=== PATIENT | male | born 1965 | race Two or more races ===

== ENCOUNTER 2019-08-06 19:25 | Inpatient (IN) | payer MEDICAID ==
[~2019-08-06] VITALS: Ht 182.9 cm; Wt 96.2 kg
[2019-08-06 20:40] LABS: Urine Bacteria NONE SEEN /hpf (None Seen); Urine Blood TRACE /uL (Negative); Urine Specific Gravity 1.028 (1.001-1.035); Urine WBC <1 /hpf (0 - 3)
[2019-08-06 22:19] LABS: Basophils # (auto) 0 uL; Basophils % (auto) 0.4 % (0.0-2.0); Eosinophils # (auto) 0 uL; Eosinophils % (auto) 0.2 % (0.0-7.0); Hematocrit 42.6 % (41.0-53.0); Hemoglobin 14.1 g/dL (13.5-17.5); Lymphocytes # (auto) 1.1 uL; Lymphocytes % (auto) 10.2 % (10.0-50.0); Mean Corpuscular Hemoglobin 29.3 pg (28.0-32.0); Mean Corpuscular Hgb Conc. 33.1 g/dL (32.0-36.0); Mean Corpuscular Volume 88.7 fL (80.0-100.0); Monocytes # (auto) 1.3 uL; Monocytes % (auto) 12.3 % (0.0-12.0); Neutrophils # (auto) 8.3 uL; Neutrophils % (auto) 76.9 % (37.0-80.0); Nucleated Red Blood Cells % 0.1 %; Platelet Count (auto) 432 10^3/uL (140-450); Red Cell Distribution Width 13.4 % (11.8-14.3); White Blood Cell 10.7 10^3/uL (4.4-10.8)
[2019-08-06 22:39] LABS: Calcium 8.6 mg/dL (8.5-10.1); Potassium 4.7 mmol/L (3.5-5.1)
[2019-08-06 22:41] LABS: Bilirubin, Total 0.8 mg/dL (0.2-1.0); Total Protein 7.7 g/dL (6.4-8.2)
[2019-08-07] MEDS ORDERED: InsuLIN REG 1unit/0.01ml Soln (100units/ml) IV ONE (05:00)
[2019-08-07] MEDS ORDERED: SODIUM CHLORIDE 0.9% 1,000 ML IV ONE (05:00)
[2019-08-07] MEDS ORDERED: VANCOMYCIN PER PHARMACY 0 MG IV SCH (07:00)
[2019-08-07] MEDS ORDERED: CLINDAMYCIN 600MG IV 50 ML IV ONE (07:00)
[2019-08-07] MEDS ORDERED: ACETAMINOPHEN 325 MG TAB PO PRN (07:00)
[2019-08-07] MEDS ORDERED: TEMAZEPAM 15 MG CAP PO PRN (07:00)
[2019-08-07] MEDS ORDERED: ONDANSETRON HCL 4 MG/2 ML VIAL IV PRN (07:00)
[2019-08-07] MEDS ORDERED: DEXTROSE (50%) 50ML SYRG IV PRN (07:00)
[2019-08-07] MEDS ORDERED: PIPERACILLIN-TAZOB 3.375GM 100 ML IV ONE (07:15)
[2019-08-07] MEDS: HYDROcodone-ACET 5/325MG TAB PO PRN ×3 (07:50→17:15)
[2019-08-07 08:09] LABS: Albumin 2.6 g/dL (3.4-5.0); Calcium 8.3 mg/dL (8.5-10.1); Potassium 4.4 mmol/L (3.5-5.1)
[2019-08-07] MEDS: InsuLIN REG 1unit/0.01ml Soln (100units/ml) SC SCH ×4 (08:09→20:00)
[2019-08-07] MEDS: ACCU-CHEK COMFORT CURVE STRIP VI SCH ×4 (08:10→20:00)
[2019-08-07 08:12] LABS: BUN/Creatinine Ratio 21.2
[2019-08-07 08:14] LABS: Bilirubin, Total 0.5 mg/dL (0.2-1.0); Total Protein 6.9 g/dL (6.4-8.2)
[2019-08-07] MEDS: VANCOMYCIN 1,250 MG in D5W 5% 250 ML IV SCH ×2 (08:50→21:26)
[2019-08-07 09:20] VITALS: BP 148/65
[2019-08-07] MEDS ORDERED: CLOPIDOGREL BISULFATE 75 MG TAB PO SCH (10:00)
[2019-08-07] MEDS ORDERED: LEVETIRACETAM 500 MG TAB PO SCH (10:00)
[2019-08-07] MEDS: FAMOTIDINE 20 MG TAB PO SCH ×2 (10:09→21:39)
[2019-08-07] MEDS: LISINOPRIL 20 MG TAB PO SCH (10:10)
[2019-08-07] MEDS: METOPROLOL SUCCINATE XL 50 MG TAB PO SCH (10:10)
[2019-08-07] MEDS: ENOXAPARIN SOD 40 MG/0.4 ML SYRINGE SC SCH (10:11)
[2019-08-07 12:30] VITALS: BP 120/73
[2019-08-07] MEDS: PIPERACILLIN-TAZOB 3.375GM 100 ML IV SCH ×2 (12:38→17:14)
[2019-08-07] MEDS ORDERED: LORazepam 2MG/ML-1ML VIAL IV ONE (12:45)
[2019-08-07] MEDS ORDERED: INSULIN LANTUS (GLARGINE) 1 /0.01ml (100units/ml) SC ONE (12:45)
[2019-08-07 14:07] LABS: INR 0.96 (0.9-1.15); Partial Thromboplastin Time 31.2 sec (23.64-32.05)
[2019-08-07] MEDS ORDERED: LORazepam 2MG/ML-1ML VIAL IV PRN (14:30)
[2019-08-07 16:32] VITALS: BP 157/72
[2019-08-07] MEDS: Glucerna Carbsteady SHAKE Vanilla 8oz PO SCH (17:55)
[2019-08-07] MEDS ORDERED: BENZ1CAP24 PO (19:14)
[2019-08-07] MEDS ORDERED: CLOP75TA41 PO (19:14)
[2019-08-07] MEDS ORDERED: ASPI325T4 PO (19:14)
[2019-08-07] MEDS ORDERED: ATOR20TA PO (19:14)
[2019-08-07] MEDS ORDERED: LISI-646 PO (19:14)
[2019-08-07] MEDS ORDERED: KEP500T PO (19:14)
[2019-08-07] MEDS ORDERED: ALPR0.254 PO (19:14)
[2019-08-07] MEDS ORDERED: METO25TA62 PO (19:14)
[2019-08-07 20:00] VITALS: BP 156/72
[2019-08-07] MEDS: LEVETIRACETAM 500 MG TAB PO SCH (21:38)
[2019-08-07] MEDS: ATORVASTATIN 20 MG TAB PO SCH (21:39)
[2019-08-07 22:00] VITALS: BP 156/72
[2019-08-08] MEDS: PIPERACILLIN-TAZOB 3.375GM 100 ML IV SCH ×4 (00:20→17:29)
[2019-08-08] MEDS: HYDROcodone-ACET 5/325MG TAB PO PRN ×4 (00:45→18:31)
[2019-08-08] MEDS: ACCU-CHEK COMFORT CURVE STRIP VI SCH ×6 (04:00→20:00)
[2019-08-08] MEDS: InsuLIN REG 1unit/0.01ml Soln (100units/ml) SC SCH ×5 (04:00→16:47)
[2019-08-08 04:32] VITALS: BP 164/79
[2019-08-08 06:32] LABS: Basophils # (auto) 0 uL; Basophils % (auto) 0.4 % (0.0-2.0); Eosinophils # (auto) 0.1 uL; Eosinophils % (auto) 0.9 % (0.0-7.0); Hematocrit 35.2 % (41.0-53.0); Hemoglobin 11.9 g/dL (13.5-17.5); Lymphocytes # (auto) 1.1 uL; Lymphocytes % (auto) 13.3 % (10.0-50.0); Mean Corpuscular Hemoglobin 29.2 pg (28.0-32.0); Mean Corpuscular Hgb Conc. 33.8 g/dL (32.0-36.0); Mean Corpuscular Volume 86.5 fL (80.0-100.0); Monocytes # (auto) 1.1 uL; Monocytes % (auto) 12.9 % (0.0-12.0); Neutrophils # (auto) 6.1 uL; Neutrophils % (auto) 72.5 % (37.0-80.0); Platelet Count (auto) 348 10^3/uL (140-450); Red Blood Cells 4.07 10^6/uL (4.5-5.90); Red Cell Distribution Width 13.3 % (11.8-14.3); White Blood Cell 8.4 10^3/uL (4.4-10.8)
[2019-08-08 06:52] LABS: Albumin 2.4 g/dL (3.4-5.0); Calcium 8.1 mg/dL (8.5-10.1); Potassium 3.7 mmol/L (3.5-5.1)
[2019-08-08 06:56] LABS: BUN/Creatinine Ratio 20.6; Bilirubin, Total 0.3 mg/dL (0.2-1.0); Total Protein 6.3 g/dL (6.4-8.2)
[2019-08-08 08:00] VITALS: BP 149/67
[2019-08-08] MEDS ORDERED: INFLUENZA QUAD 2019-2020 0.5ml SYRG IM ONE (08:00)
[2019-08-08] MEDS ORDERED: PNEUMOCOCCAL VACC POLYS 25 MCG/0.5 ML VIAL IM ONE (08:00)
[2019-08-08] MEDS: Glucerna Carbsteady SHAKE Vanilla 8oz PO SCH ×3 (08:23→17:29)
[2019-08-08] MEDS: VANCOMYCIN 1,250 MG in D5W 5% 250 ML IV SCH ×2 (09:29→21:45)
[2019-08-08] MEDS: ENOXAPARIN SOD 40 MG/0.4 ML SYRINGE SC SCH (09:30)
[2019-08-08] MEDS: LEVETIRACETAM 500 MG TAB PO SCH ×2 (09:30→21:44)
[2019-08-08] MEDS: FAMOTIDINE 20 MG TAB PO SCH ×2 (09:30→21:42)
[2019-08-08] MEDS: ASPirin-EC 81 mg tab PO SCH (09:30)
[2019-08-08] MEDS: LISINOPRIL 20 MG TAB PO SCH (09:38)
[2019-08-08] MEDS: METOPROLOL SUCCINATE XL 50 MG TAB PO SCH (09:38)
[2019-08-08] MEDS: INSULIN LANTUS (GLARGINE) 1 /0.01ml (100units/ml) SC SCH ×2 (09:38→21:55)
[2019-08-08] MEDS ORDERED: INSULIN LANTUS (GLARGINE) 1 /0.01ml (100units/ml) SC SCH (10:00)
[2019-08-08 12:00] VITALS: BP 149/93
[2019-08-08] MEDS ORDERED: diphenhdrAMINE HCL 50 MG/1 ML VL IV ONE ×2 (12:15→19:00)
[2019-08-08 17:00] VITALS: BP 153/69
[2019-08-08 20:00] VITALS: BP 142/65
[2019-08-08] MEDS: ATORVASTATIN 20 MG TAB PO SCH (21:42)
[2019-08-08 22:22] VITALS: BP 142/65
[2019-08-09] MEDS: PIPERACILLIN-TAZOB 3.375GM 100 ML IV SCH ×5 (00:47→23:43)
[2019-08-09] MEDS: InsuLIN REG 1unit/0.01ml Soln (100units/ml) SC SCH ×7 (04:00→23:47)
[2019-08-09] MEDS: ACCU-CHEK COMFORT CURVE STRIP VI SCH ×7 (04:00→23:45)
[2019-08-09] MEDS: HYDROcodone-ACET 5/325MG TAB PO PRN ×4 (04:59→20:28)
[2019-08-09 05:56] VITALS: BP 116/79
[2019-08-09] MEDS: Glucerna Carbsteady SHAKE Vanilla 8oz PO SCH ×3 (08:00→18:00)
[2019-08-09] MEDS: VANCOMYCIN 1,250 MG in D5W 5% 250 ML IV SCH ×2 (08:26→20:53)
[2019-08-09 09:00] VITALS: BP 142/64
[2019-08-09] MEDS: LISINOPRIL 20 MG TAB PO SCH (10:00)
[2019-08-09] MEDS: LEVETIRACETAM 500 MG TAB PO SCH ×2 (10:00→21:29)
[2019-08-09] MEDS: ENOXAPARIN SOD 40 MG/0.4 ML SYRINGE SC SCH (10:00)
[2019-08-09] MEDS: ASPirin-EC 81 mg tab PO SCH (10:00)
[2019-08-09] MEDS: FAMOTIDINE 20 MG TAB PO SCH ×2 (10:01→21:30)
[2019-08-09] MEDS: INSULIN LANTUS (GLARGINE) 1 /0.01ml (100units/ml) SC SCH ×2 (10:01→21:39)
[2019-08-09] MEDS: METOPROLOL SUCCINATE XL 50 MG TAB PO SCH (10:01)
[2019-08-09 13:00] VITALS: BP 120/66
[2019-08-09 17:00] VITALS: BP 156/68
[2019-08-09] MEDS ORDERED: diphenhdrAMINE HCL 50 MG/1 ML VL IV PRN (20:45)
[2019-08-09] MEDS: MORPHINE SULF INJ 2 MG/ML SYRINGE 1ML IV PRN (21:28)
[2019-08-09] MEDS: ATORVASTATIN 20 MG TAB PO SCH (21:30)
[2019-08-09 22:02] VITALS: BP 166/85
[2019-08-10 05:42] VITALS: BP 166/70
[2019-08-10] MEDS: ACCU-CHEK COMFORT CURVE STRIP VI SCH ×5 (06:05→19:58)
[2019-08-10] MEDS: PIPERACILLIN-TAZOB 3.375GM 100 ML IV SCH ×3 (06:05→18:47)
[2019-08-10] MEDS: InsuLIN REG 1unit/0.01ml Soln (100units/ml) SC SCH ×5 (06:13→19:48)
[2019-08-10] MEDS: Glucerna Carbsteady SHAKE Vanilla 8oz PO SCH ×3 (08:00→18:00)
[2019-08-10] MEDS ORDERED: LIDOCAINE 1% HCL (LOCAL ANESTH.) INJ 20ML MDV ONE (08:28)
[2019-08-10] MEDS ORDERED: BUPIVACAINE HCL 50 ML ONE (08:29)
[2019-08-10] MEDS ORDERED: LIDOCAINE 1% (LOCAL ANESTH.) PF 5ml SDV ONE (08:51)
[2019-08-10] MEDS ORDERED: MIDAZOLAM HCL 1MG/1ML-2 ML VIAL ONE ×2 (09:01→09:14)
[2019-08-10] MEDS ORDERED: METOCLOPRAMIDE HCL 5MG/ml INJ 2ml VIAL ONE (09:06)
[2019-08-10] MEDS ORDERED: PROPOFOL 10 MG/ML 20 ML IV ONE (09:10)
[2019-08-10] MEDS ORDERED: GLYCOPYRROLATE 0.2 MG/ML 1ML VIAL ONE (09:12)
[2019-08-10] MEDS ORDERED: diphenhdrAMINE HCL 50 MG/1 ML VL ONE (09:12)
[2019-08-10] MEDS: ENOXAPARIN SOD 40 MG/0.4 ML SYRINGE SC SCH (10:00)
[2019-08-10] MEDS ORDERED: HYDROmorphone HCL 2 MG/ML VL IV PRN (10:15)
[2019-08-10] MEDS ORDERED: HYDROmorphone HCL 2 MG/ML VL ONE (10:15)
[2019-08-10] MEDS ORDERED: NALOXONE HCL 0.4 MG/ML VIAL IV PRN (10:15)
[2019-08-10] MEDS ORDERED: ACCU-CHEK COMFORT CURVE STRIP VI ONE (10:15)
[2019-08-10] MEDS ORDERED: ONDANSETRON HCL 4 MG/2 ML VIAL IV PRN (10:15)
[2019-08-10] MEDS: ASPirin-EC 81 mg tab PO SCH (10:56)
[2019-08-10] MEDS: LEVETIRACETAM 500 MG TAB PO SCH ×2 (10:57→22:19)
[2019-08-10] MEDS: LISINOPRIL 20 MG TAB PO SCH (10:57)
[2019-08-10] MEDS: FAMOTIDINE 20 MG TAB PO SCH ×2 (10:57→22:20)
[2019-08-10] MEDS: HYDROcodone-ACET 5/325MG TAB PO PRN ×2 (10:58→17:39)
[2019-08-10] MEDS: METOPROLOL SUCCINATE XL 50 MG TAB PO SCH (10:58)
[2019-08-10] MEDS: INSULIN LANTUS (GLARGINE) 1 /0.01ml (100units/ml) SC SCH ×2 (12:27→22:41)
[2019-08-10] MEDS: VANCOMYCIN 1,250 MG in D5W 5% 250 ML IV SCH ×2 (12:38→22:21)
[2019-08-10 13:00] VITALS: BP 149/69
[2019-08-10] MEDS: MORPHINE SULF INJ 2 MG/ML SYRINGE 1ML IV PRN ×2 (14:34→19:47)
[2019-08-10] MEDS ORDERED: LIDOCAINE 1% (LOCAL ANESTH.) PF 5ml SDV ID ONE (14:45)
[2019-08-10 17:00] VITALS: BP 164/66
[2019-08-10 22:08] VITALS: BP 138/65
[2019-08-10] MEDS: ATORVASTATIN 20 MG TAB PO SCH (22:20)
[2019-08-10] MEDS: SODIUM CHLOR 0.9% PF (SALINE LOCK) 10ML VIAL/SYR IV SCH (22:21)
[2019-08-11] MEDS: PIPERACILLIN-TAZOB 3.375GM 100 ML IV SCH ×3 (00:31→12:29)
[2019-08-11] MEDS: InsuLIN REG 1unit/0.01ml Soln (100units/ml) SC SCH ×7 (00:33→23:40)
[2019-08-11] MEDS: ACCU-CHEK COMFORT CURVE STRIP VI SCH ×7 (00:33→23:40)
[2019-08-11] MEDS: MORPHINE SULF INJ 2 MG/ML SYRINGE 1ML IV PRN ×4 (04:23→20:07)
[2019-08-11 04:45] VITALS: BP 135/74
[2019-08-11] MEDS: HYDROcodone-ACET 5/325MG TAB PO PRN (05:59)
[2019-08-11 06:36] LABS: Basophils # (auto) 0.1 uL; Basophils % (auto) 1.4 % (0.0-2.0); Eosinophils # (auto) 0.2 uL; Eosinophils % (auto) 1.7 % (0.0-7.0); Hemoglobin 11.5 g/dL (13.5-17.5); Lymphocytes # (auto) 0.9 uL; Lymphocytes % (auto) 10.2 % (10.0-50.0); Mean Corpuscular Hemoglobin 29.2 pg (28.0-32.0); Mean Corpuscular Hgb Conc. 33.8 g/dL (32.0-36.0); Mean Corpuscular Volume 86.3 fL (80.0-100.0); Monocytes # (auto) 1.1 uL; Monocytes % (auto) 11.6 % (0.0-12.0); Neutrophils % (auto) 75.1 % (37.0-80.0); Platelet Count (auto) 361 10^3/uL (140-450); Red Blood Cells 3.94 10^6/uL (4.5-5.90); Red Cell Distribution Width 13.3 % (11.8-14.3); White Blood Cell 9.3 10^3/uL (4.4-10.8)
[2019-08-11] MEDS: VANCOMYCIN 1,250 MG in D5W 5% 250 ML IV SCH (08:05)
[2019-08-11] MEDS: Glucerna Carbsteady SHAKE Vanilla 8oz PO SCH ×3 (08:05→18:00)
[2019-08-11] MEDS: INSULIN LANTUS (GLARGINE) 1 /0.01ml (100units/ml) SC SCH ×2 (08:36→22:29)
[2019-08-11] MEDS: LEVETIRACETAM 500 MG TAB PO SCH ×2 (08:37→22:24)
[2019-08-11] MEDS: ASPirin-EC 81 mg tab PO SCH (08:37)
[2019-08-11] MEDS: METOPROLOL SUCCINATE XL 50 MG TAB PO SCH (08:38)
[2019-08-11] MEDS: LISINOPRIL 20 MG TAB PO SCH (08:38)
[2019-08-11] MEDS: FAMOTIDINE 20 MG TAB PO SCH ×2 (08:39→22:24)
[2019-08-11] MEDS: ENOXAPARIN SOD 40 MG/0.4 ML SYRINGE SC SCH (08:39)
[2019-08-11] MEDS: SODIUM CHLOR 0.9% PF (SALINE LOCK) 10ML VIAL/SYR IV SCH ×2 (08:40→22:29)
[2019-08-11 09:00] VITALS: BP 167/69
[2019-08-11 13:15] VITALS: BP 141/94
[2019-08-11] MEDS ORDERED: LEVOFLOXACIN 750MG 150 ML IV ONE (13:45)
[2019-08-11 16:56] VITALS: BP 135/61
[2019-08-11 21:47] VITALS: BP 136/75
[2019-08-11] MEDS: ATORVASTATIN 20 MG TAB PO SCH (22:24)
[2019-08-12] MEDS: InsuLIN REG 1unit/0.01ml Soln (100units/ml) SC SCH ×3 (04:00→12:00)
[2019-08-12] MEDS: ACCU-CHEK COMFORT CURVE STRIP VI SCH ×3 (04:12→12:00)
[2019-08-12] MEDS: MORPHINE SULF INJ 2 MG/ML SYRINGE 1ML IV PRN (04:20)
[2019-08-12 05:20] VITALS: BP 160/79
[2019-08-12] MEDS: HYDROcodone-ACET 5/325MG TAB PO PRN ×2 (06:27→11:00)
[2019-08-12] MEDS: Glucerna Carbsteady SHAKE Vanilla 8oz PO SCH ×2 (08:12→12:00)
[2019-08-12] MEDS: INSULIN LANTUS (GLARGINE) 1 /0.01ml (100units/ml) SC SCH (08:14)
[2019-08-12 08:30] VITALS: BP 138/63
[2019-08-12] MEDS: FAMOTIDINE 20 MG TAB PO SCH (09:48)
[2019-08-12] MEDS: LEVETIRACETAM 500 MG TAB PO SCH (09:48)
[2019-08-12] MEDS: ASPirin-EC 81 mg tab PO SCH (09:48)
[2019-08-12] MEDS: ENOXAPARIN SOD 40 MG/0.4 ML SYRINGE SC SCH (09:48)
[2019-08-12] MEDS: SODIUM CHLOR 0.9% PF (SALINE LOCK) 10ML VIAL/SYR IV SCH (09:49)
[2019-08-12] MEDS: LISINOPRIL 20 MG TAB PO SCH (09:49)
[2019-08-12] MEDS: METOPROLOL SUCCINATE XL 50 MG TAB PO SCH (09:49)
[2019-08-12] MEDS ORDERED: LEVOFLOXACIN 750MG 150 ML IV SCH (10:00)
[2019-08-12 10:58] VITALS: BP 138/63
[2019-08-12 12:00] VITALS: BP 163/73
[2019-08-12] MEDS ORDERED: DAKINS QUARTER STR 0.125% (NaHypochlorite) 473 ML TOPICAL SOL TOP SCH (22:00)
== END 2019-08-12 15:00 | disposition home health service (06) | DRG 314 ==
LOC: ER 19:33 → OVERFLOW 19:34 → WEST WING 08-07 12:12
PROVIDERS: ADMIT Nurse Practitioner; ATTEND Internal Medicine
PROC: 0QBL0ZZ Excision of Right Tarsal, Open Approach (ICD-10-PCS; 2019-08-10)
PROC: 0QBN0ZZ Excision of Right Metatarsal, Open Approach (ICD-10-PCS; 2019-08-10)
PROC: 0Y9M0ZZ Drainage of Right Foot, Open Approach (ICD-10-PCS; principal; 2019-08-10 09:02)
DX: T87.43 Infection of amputation stump, right lower extremity (principal); E43 Unspecified severe protein-calorie malnutrition; E11.40 Type 2 diabetes mellitus with diabetic neuropathy, unspecified; E11.69 Type 2 diabetes mellitus with other specified complication; M86.171 Other acute osteomyelitis, right ankle and foot; E11.65 Type 2 diabetes mellitus with hyperglycemia; E11.49 Type 2 diabetes mellitus with other diabetic neurological complication; I10 Essential (primary) hypertension; E87.1 Hypo-osmolality and hyponatremia; Y83.5 Amputation of limb(s) as the cause of abnormal reaction of the patient, or of later complication, without mention of misadventure at the time of the procedure; B96.20 Unspecified Escherichia coli [E. coli] as the cause of diseases classified elsewhere; E11.51 Type 2 diabetes mellitus with diabetic peripheral angiopathy without gangrene; E78.5 Hyperlipidemia, unspecified; I45.10 Unspecified right bundle-branch block; I45.2 Bifascicular block; Z79.4 Long term (current) use of insulin; Z86.73 Personal history of transient ischemic attack (TIA), and cerebral infarction without residual deficits; Z95.820 Peripheral vascular angioplasty status with implants and grafts; Z68.28 Body mass index [BMI] 28.0-28.9, adult; Z79.82 Long term (current) use of aspirin; Z79.899 Other long term (current) drug therapy; Z83.3 Family history of diabetes mellitus; Y92.098 Other place in other non-institutional residence as the place of occurrence of the external cause
CPT/HCPCS: 36415; 36569; 71045; 73700; 73718; 80053; 80202; 81001; 82565; 82962; 83036; 83605; 85025; 85610; 85652; 85730; 87040; 87075; 87077; 87186; 87205; 93306; 96361; 96365; 96366; 96368; 96375; G0378; J1815; J1956; J2001; J2250; J2543; J2704; J3490; J7060

== ENCOUNTER 2020-01-03 12:22 | Inpatient (IN) | payer MEDICAID ==
[~2020-01-03] VITALS: Ht 182.9 cm; Wt 98.4 kg
[~2020-01-03 12:22] MED LIST: ALPR0.254 PO; ASPI325T4 PO; ATOR20TA PO; BENZ1CAP24 PO; CLOP75TA41 PO; KEP500T PO; LISI-646 PO; METO25TA93 PO
[2020-01-03] MEDS ORDERED: VANCOMYCIN PER PHARMACY 0 MG IV SCH ×2 (13:15→15:45)
[2020-01-03] MEDS ORDERED: VANCOMYCIN 1GM/250ML 250 ML IV ONE (13:30)
[2020-01-03 13:32] LABS: Basophils # (auto) 0 10 ^3/uL (0-0.2); Basophils % (auto) 0.5 % (0.0-2.0); Eosinophils # (auto) 0.1 10 ^3/uL (0-0.8); Eosinophils % (auto) 1.1 % (0.0-7.0); Hematocrit 41.4 % (41.0-53.0); Hemoglobin 13.9 g/dL (13.5-17.5); Lymphocytes # (auto) 1.2 10 ^3/uL (0.4-5.4); Lymphocytes % (auto) 18.4 % (10.0-50.0); Mean Corpuscular Hemoglobin 27.9 pg (28.0-32.0); Mean Corpuscular Hgb Conc. 33.5 g/dL (32.0-36.0); Mean Corpuscular Volume 83.3 fL (80.0-100.0); Monocytes # (auto) 0.7 10 ^3/uL (0-1.3); Monocytes % (auto) 10.9 % (0.0-12.0); Neutrophils # (auto) 4.6 10 ^3/uL (1.6-8.6); Neutrophils % (auto) 69.1 % (37.0-80.0); Nucleated Red Blood Cells % 0.2 %; Platelet Count (auto) 301 10^3/uL (140-450); Red Blood Cells 4.98 10^6/uL (4.5-5.90); Red Cell Distribution Width 14.4 % (11.8-14.3); White Blood Cell 6.7 10^3/uL (4.4-10.8)
[2020-01-03 13:49] LABS: Albumin 2.7 g/dL (3.4-5.0); BUN/Creatinine Ratio 24.3; Calcium 8.3 mg/dL (8.5-10.1); Magnesium 2.2 mg/dL (1.6-2.6); Potassium 4.1 mmol/L (3.5-5.1)
[2020-01-03 13:52] LABS: Bilirubin, Total 0.3 mg/dL (0.2-1.0); INR 0.96 (0.9-1.15); Partial Thromboplastin Time 25.9 sec (23.64-32.05); Total Protein 6.6 g/dL (6.4-8.2)
[2020-01-03] MEDS: VANCOMYCIN 1GM/250ML 250 ML IV SCH ×2 (14:12→22:08)
[2020-01-03] MEDS: SODIUM CHLORIDE 0.9% 1,000 ML IV SCH (15:52)
[2020-01-03] MEDS ORDERED: LACTULOSE 20Gm/30ML SOLN PO PRN (16:00)
[2020-01-03] MEDS ORDERED: traMADol HCL 50 MG TAB PO PRN (16:00)
[2020-01-03] MEDS ORDERED: PROMETHAZINE HCL 25 MG/ML 1ML IV PRN (16:00)
[2020-01-03] MEDS ORDERED: ACETAMINOPHEN 500 MG TAB PO PRN (16:00)
[2020-01-03] MEDS ORDERED: DEXTROSE (50%) 50ML SYRG IV PRN (16:00)
[2020-01-03] MEDS ORDERED: TEMAZEPAM 15 MG CAP PO PRN (16:00)
--- NOTE | 2020-01-03 17:00 | NUR ---
MS admit from ER RONA GANDHI admitted to tele/MS after SBAR received. Patient oriented to HERNANDEZ JIMENEZ, RN primary RN, unit, room 289B, bed, and unit policies regarding patient care and visiting hours. Patient weighed by bedscale and encouraged to call if they need something. All questions and concerns addressed, patient verbalized understanding. Bed in low and locked position, rails up x2, no-slip socks provided.
--- NOTE | 2020-01-03 17:15 | NUR ---
PATIENT REFUSING WOUND PHOTO/ASSESSMENT STATED HE IS TO HAVE A SCHEDULED PROCEDURE WITH DR CORRAL AND THAT HE DOES NOT WANT TO REMOVE HIS DRESSING THAT WAS JUST PLACED TODAY BY HIS HOME HEALTH WOUND CARE NURSE. PATIENT OFFERED A PHOTO ON HIS PHONE OF THE WOUND, HOWEVER THIS NURSE INFORMED THE PATIENT THAT THE PHOTO IS FOR REFERENCE WITH OUR WOUND CARE TEAM, PATIENT STILL REFUSING AT THIS TIME.
--- NOTE | 2020-01-03 17:30 | NUR ---
PAGE TO DR SIOMARA STRINGER CALL BACK AND NEW DIET ADDED, DIABETIC DIET FOR DINNER AND NPO AT MIDNIGHT.
[2020-01-03] MEDS: ACCU-CHEK COMFORT CURVE STRIP VI SCH ×2 (17:34→21:48)
--- NOTE | 2020-01-03 17:45 | NUR ---
PAGE TO DR CORRAL TO INQUIRE WHICH ORDERS/VERBIAGE TO PLACE FOR PATIENT REGARDING CONSENTS AND PLANNED PROCEDURE TOMORROW. AWAITING CALL BACK.
[2020-01-03] MEDS ORDERED: INSU100I33 SC (17:55)
[2020-01-03] MEDS ORDERED: AMLO5TAB15 PO (17:55)
--- NOTE | 2020-01-03 18:00 | NUR ---
WOUND CARE NURSE AT BEDSIDE PATIENT VERBALIZES AGREEMENT TO DOING FULL WOUND CARE CHANGE AND TAKING A PHOTO AT THIS TIME. WOUND SPECIMEN COLLECTED.
[2020-01-03] MEDS: InsuLIN REG 1unit/0.01ml Soln (100units/ml) SC SCH ×2 (18:08→21:48)
--- NOTE | 2020-01-03 18:14 | NUR ---
WOUND CARE NOTE: Wound Care in to see patient per wound care request regarding "Rt foot wound infection..." that are noted present on admission. Patient is 54 years old male with admitting diagnosis of R Foot Infected Wound. Patient with history of DM, CVA, htn anxiety, dyslipidemia, Diabetic neuropathy. Patient is resting in bed in Rm. 289B. Patient is awake, alert and oriented. He's in no stated pain at this time however states that her R foot is sensitive to touch. Patient is self turning and repositioning. His Adelso score is 16. Skin wound assessment done with the assistance of patient's nurse, NICHOLAS Barroso. Removed patient's R foot wound dressing. Patient noted R foot toes are missing with closed stump scar. He has history of R foot distal metatarsal amputation which he reported done in 2017 in different facility. He also undergone Incision and Drainage of all non-viable tissue and bone to Rt foot on previous admission in [facility] in July last year by Dr. Ruiz. Patient reported he followed up and seen at Dr. Ruiz's clinic and he sent him to ED due to plantar foot infected wound and possible surgery tomorrow. Noted patient's Rt. lateral foot has 2x2.2cm DFU with yellow/brown dry hyperkeratotic skin. Platar aspect of his Rt foot has 3x5x0.5cm macerated, necrotic, draining Diabetic Ulcer. Wound bed is mixture of black, yellow, dusky red soft necrotic tissue. dodie wound is bright red, minimal serous drainage noted,mild odor noted. Cleansed patient's Rt plantar foot wound with NS, took specimen for wound culture and sent to lab for processing. Photograph of wound are taken for reference. Covered wounds with Betadine gauze, padded with layer of 4x4's gauze, wrapped with Kerlix and secured with tape. Patient tolerated well and denies any other wound. NICHOLAS Barroso at bedside RECOMMENDATION: Daily/PRN dressing change to R foot wound per MD order while patient is not having surgery, then follow surgeon's dressing order post operatively, dietary consult due to presence of wounds, redistribute pressure points with pillows, elevate affected extremity on pillows to help offload pressure, continue monitoring by wound care while patient is hospitalized. Addendum: 01/03/20 at 1855 by Anabel Jessica RN Amended: Links added.
--- NOTE | 2020-01-03 19:20 | NUR ---
OPENING NOTE Received report from day shift RN. Patient is A&O X's 4 with no s/s of distress and reports no pain. Educated patient on POC and to use call light when in need of assistance. Patient verbalized understanding. Bed is in lowest/locked position with side rails up X's 2 and call light is within reach of patient. Will continue care. Patient reports not needing the side rails padded at this time. Educated patient on purpose of this for seizure precautions. Patient verbalized understanding. Will keep materials at bedside.
[2020-01-03 21:34] VITALS: BP 155/73
--- NOTE | 2020-01-03 21:59 | NUR ---
PAGED HOSPITALIST regarding home medications
--- NOTE | 2020-01-03 22:34 | NUR ---
RECEIVED CALL BACK FROM HOSPITALIST New orders received. read back and verified.
[2020-01-03] MEDS: levETIRAcetam 500 MG TAB PO SCH (22:40)
[2020-01-04] VITALS (7 sets, daily range): BP systolic 100–160; BP diastolic 68–78
[2020-01-04] MEDS: SODIUM CHLORIDE 0.9% 1,000 ML IV SCH ×3 (04:42→23:14)
[2020-01-04] MEDS: VANCOMYCIN 1GM/250ML 250 ML IV SCH ×3 (06:01→21:33)
[2020-01-04] MEDS: InsuLIN REG 1unit/0.01ml Soln (100units/ml) SC SCH ×4 (06:17→22:12)
[2020-01-04] MEDS: ACCU-CHEK COMFORT CURVE STRIP VI SCH ×4 (06:21→21:34)
--- NOTE | 2020-01-04 07:13 | NUR ---
SPOKE WITH HOSPITALIST LUIS ENRIQUE TO USE PICC.
[2020-01-04] MEDS: cefTRIAXone 1GM/50ML D5W 50 ML IV SCH ×3 (09:00→10:20)
[2020-01-04] MEDS: levETIRAcetam 500 MG TAB PO SCH ×2 (10:00→21:33)
[2020-01-04] MEDS: ENOXAPARIN SOD 40 MG/0.4 ML SYRINGE SC SCH (10:00)
[2020-01-04] MEDS: LISINOPRIL 20 MG TAB PO SCH (10:00)
--- NOTE | 2020-01-04 10:05 | NUR ---
PATIENT IN OR Addendum: 01/04/20 at 1005 by Liane Bravo RN Amended: Links added.
[2020-01-04] MEDS ORDERED: MIDAZOLAM HCL 1MG/1ML-2 ML VIAL ONE (10:20)
[2020-01-04] MEDS ORDERED: fentaNYL CITRATE 100 MCG/2 ML VL ONE (10:20)
[2020-01-04] MEDS ORDERED: PROPOFOL 10 MG/ML 20 ML IV ONE (10:29)
[2020-01-04] MEDS ORDERED: MORPHINE SULFATE 4 MG/ML SYR/VIAL IV PRN (11:15)
[2020-01-04] MEDS ORDERED: MIDAZOLAM HCL 1MG/1ML-2 ML VIAL IV PRN (11:15)
[2020-01-04] MEDS ORDERED: LABETALOL HCL 5 MG/ML 4ML SYRINGE IV PRN (11:15)
[2020-01-04] MEDS ORDERED: ePHEDrine SULFATE 50 MG/ML AMP IV PRN (11:15)
[2020-01-04] MEDS ORDERED: ONDANSETRON HCL 4 MG/2 ML VIAL IV PRN (11:15)
[2020-01-04] MEDS ORDERED: ACCU-CHEK COMFORT CURVE STRIP VI ONE (11:15)
[2020-01-04] MEDS: HYDROmorphone HCL 2 MG/ML VL IV PRN ×2 (11:24→11:34)
--- NOTE | 2020-01-04 12:17 | NUR ---
RETURNED TO ROOM FROM RECOVERY ROOM DRESSING TO RIGHT FOOT CLEAN DRY AND INTACT. DENIES ANY PAIN AT THIS TIME NO SIGNS OF DISTRESS.
--- NOTE | 2020-01-04 14:59 | NUR ---
Nutrition Assessment Notes Please refer to link for full assessment notes. Est energy needs: kcals (20-23 kcal/kgBW) Est protein needs: 109-119 gms/day (1.1-1.2 gm/kgBW) d/t wound Will continue to monitor and reassess prn. Addendum: 01/04/20 at [address] Amended: Links added.
[2020-01-04] MEDS: MORPHINE SULF INJ 2 MG/ML SYRINGE 1ML IV PRN (15:43)
--- NOTE | 2020-01-04 15:43 | NUR ---
PAIN 10/10 RIGHT FOOT. MEDICATED WITH MORPHINE 2 MG SLOW IV PUSH.
[2020-01-04] MEDS ORDERED: PIPERACILLIN-TAZO 4.5GM 100 ML IV ONE (17:45)
--- NOTE | 2020-01-04 17:46 | NUR ---
DR PRECIADO AT BEDSIDE DISCUSSED PLAN OF CARE WITH PATIENT. PATIENT VERBALIZED UNDERSTANDING.
[2020-01-04] MEDS ORDERED: HYDROcodone-ACET 5/325MG TAB PO PRN (18:00)
--- NOTE | 2020-01-04 19:00 | NUR ---
OPENING NOTE Received report from day shift RN. Patient is A&O X's 4 with no s/s of distress and reports no pain. Dressing to right foot is C/D/I. Educated patient on POC/ that right foot is completely non jayy bearing and to use call light when in need of assistance. Patient verbalized understanding. Bed is in lowest/locked position with side rails up X's 2 and call light is within reach of patient. At this time, I changed all patient's linen. Will continue care
[2020-01-04] MEDS ORDERED: ATORVASTATIN 20 MG TAB PO SCH (22:00)
[2020-01-04] MEDS: PIPERACILLIN-TAZO 4.5GM 100 ML IV SCH (23:04)
[2020-01-05] MEDS: VANCOMYCIN 1GM/250ML 250 ML IV SCH (05:03)
[2020-01-05 05:20] VITALS: BP 145/65
[2020-01-05] MEDS: PIPERACILLIN-TAZO 4.5GM 100 ML IV SCH (05:53)
[2020-01-05] MEDS: ACCU-CHEK COMFORT CURVE STRIP VI SCH ×2 (06:12→12:15)
[2020-01-05] MEDS: InsuLIN REG 1unit/0.01ml Soln (100units/ml) SC SCH ×2 (06:12→12:18)
[2020-01-05] MEDS: MORPHINE SULF INJ 2 MG/ML SYRINGE 1ML IV PRN (06:13)
--- NOTE | 2020-01-05 06:48 | NUR ---
PAIN REASSESSMENT Patient resting in bed with eyes closed. No s/s of discomfort seen.
[2020-01-05 06:51] LABS: Basophils # (auto) 0.1 10 ^3/uL (0-0.2); Basophils % (auto) 0.7 % (0.0-2.0); Eosinophils # (auto) 0.2 10 ^3/uL (0-0.8); Eosinophils % (auto) 1.9 % (0.0-7.0); Hematocrit 41.8 % (41.0-53.0); Hemoglobin 13.8 g/dL (13.5-17.5); Lymphocytes # (auto) 1.3 10 ^3/uL (0.4-5.4); Lymphocytes % (auto) 15.7 % (10.0-50.0); Mean Corpuscular Hemoglobin 28.1 pg (28.0-32.0); Monocytes # (auto) 0.8 10 ^3/uL (0-1.3); Monocytes % (auto) 9.6 % (0.0-12.0); Neutrophils # (auto) 5.9 10 ^3/uL (1.6-8.6); Neutrophils % (auto) 72.1 % (37.0-80.0); Nucleated Red Blood Cells % 0.1 %; Platelet Count (auto) 330 10^3/uL (140-450); Red Blood Cells 4.92 10^6/uL (4.5-5.90); White Blood Cell 8.1 10^3/uL (4.4-10.8)
[2020-01-05 07:04] LABS: INR 0.97 (0.9-1.15)
[2020-01-05 08:00] VITALS: BP 153/79
[2020-01-05 08:16] LABS: BUN/Creatinine Ratio 17.1; Potassium 4.2 mmol/L (3.5-5.1)
[2020-01-05 08:17] LABS: Albumin 2.5 g/dL (3.4-5.0); Bilirubin, Total 0.5 mg/dL (0.2-1.0); Total Protein 6.3 g/dL (6.4-8.2)
[2020-01-05] MEDS: levETIRAcetam 500 MG TAB PO SCH (09:10)
[2020-01-05] MEDS: SODIUM CHLORIDE 0.9% 1,000 ML IV SCH (09:10)
[2020-01-05] MEDS: LISINOPRIL 20 MG TAB PO SCH (09:10)
--- NOTE | 2020-01-05 10:00 | NUR ---
PATIENT REFUSED FOR ME DO A DRESSING CHANGE TO RIGHT LOWER EXTREMITY. HE SAID HE ONLY WANTS THE WOUND CARE NURSE TO DO OTHER BRYANT HE WOULD HAVE HIS OR HOME HEALTH NURSE DO IT.
--- NOTE | 2020-01-05 11:02 | NUR ---
Assessment Patient is a 54-year-old male who is alert and oriented. Prior to admission patient lived home with family and functioned with assistance. Per patient he will return home to his prior living arrangements post discharge and family will transport him home. Patients Di is his [facility] caregiver. Patient informed me he has a front wheel walker, walker with seat, bedside commode and cane for home use. Informed patient there is a Social Service order to resume [facility] service for IV abx, wound care and crutches. Patient advised me he lives in the [facility] and doctor Joseph advised him to come to [facility] to complete his surgery. Patient informed me he has his medication at home and his first dose started on 01/02/2020. Patient informed me his Di is teachable for IV ABX. Informed patient physical therapy department will deliver the crutches to bedside. Informed patient he has the right to participate in all discharge planning. Patient verbalized understanding and agreed to discharge plan. Faxed clinical information to [facility]. Per Mingo with [employer] [facility] ) they will resume service for patient on 01/06/2020. Faxed clinical information to [facility] requesting authorization for [facility]. Jorge Sharma with [facility] authorization is [id number]. Informed NICHOLAS Rob. Addendum: 01/05/20 at 1107 by MAYA SANTOS Amended: Links added.
--- NOTE | 2020-01-05 11:10 | NUR ---
I INFORMED PATIENT THAT DR PRECIADO ORDERED ROCEPHIN IV FOR HOME WELL THE VANCOMYCIN. I TOLD HIM THAT IT NEEDS TO BE ARRANGED THROUGH LASER MACHINE OPERATOR. HE SAID HIS IS ON HER WAY FROM [place] AND WILL BE HERE AT NOON. HE ALSO SAID HE HAS AN APPOINTMENT WITH DR CORRAL TOMORROW IN HIS [place] OFFICE FOR WOUND CARE.
[2020-01-05] MEDS: ENOXAPARIN SOD 40 MG/0.4 ML SYRINGE SC SCH (12:16)
--- NOTE | 2020-01-05 12:20 | NUR ---
DR PRECIADO AT BEDSIDE WENT OVER DISCHARGE PLAN. PATIENT VERBALIZED UNDERSTANDING. HE DID NOT WANT TO WAIT FOR DISCHARGE PAPER WORK. HE HAS HIS RX FOR NORCO AND REQUESTED TO BE TAKEN TO LOBBY FOR DISCHARGE. ASSISTED TO VEHICLE NO SIGNS OF DISTRESS.
[2020-01-05 12:59] VITALS: BP 153/79
--- NOTE | 2020-01-05 14:25 | NUR ---
D/C Planning Faxed updated order to [facility] for second IV abx Rocephin 2 gm daily for 4 weeks. learning program manager Veda will fulfill order for IV abx. Patient was discharge prior to arranging second IV abx. Addendum: 01/05/20 at 1446 by MAYA SANTOS Per Nurses notes patient did not want to wait for his second medication to be arrange.
--- NOTE | 2020-01-05 14:36 | NUR ---
I faxed home IV ATB order to [facility].
[2020-01-05] MEDS ORDERED: PIPERACILLIN-TAZO 4.5GM 100 ML IV SCH (15:00)
--- NOTE | 2020-01-05 15:59 | NUR ---
I called [facility] [phone] and spoke with Lashay, she said the IV Rocephin order is being worked on-she is aware that patient already discharged home.
== END 2020-01-05 12:30 | disposition home health service (06) | DRG 384 ==
LOC: ER 12:22 → WEST WING 12:23
PROVIDERS: ADMIT Internal Medicine; ATTEND Internal Medicine
PROC: 0JBQ0ZZ Excision of Right Foot Subcutaneous Tissue and Fascia, Open Approach (ICD-10-PCS; principal; 2020-01-04 10:22)
DX: S91.301A Unspecified open wound, right foot, initial encounter (principal); E11.21 Type 2 diabetes mellitus with diabetic nephropathy; E11.40 Type 2 diabetes mellitus with diabetic neuropathy, unspecified; E78.5 Hyperlipidemia, unspecified; I10 Essential (primary) hypertension; X58.XXXA Exposure to other specified factors, initial encounter; F41.9 Anxiety disorder, unspecified; E11.65 Type 2 diabetes mellitus with hyperglycemia; H54.61 Unqualified visual loss, right eye, normal vision left eye; Z82.49 Family history of ischemic heart disease and other diseases of the circulatory system; Z90.49 Acquired absence of other specified parts of digestive tract; Z83.3 Family history of diabetes mellitus; Z89.431 Acquired absence of right foot; Y93.89 Activity, other specified; Y92.89 Other specified places as the place of occurrence of the external cause; Y99.8 Other external cause status; Z88.1 Allergy status to other antibiotic agents
CPT/HCPCS: 36415; 71045; 80053; 80202; 82565; 82962; 83036; 83735; 84443; 85025; 85610; 85730; 86850; 86900; 86901; 87070; 87075; 87076; 87077; 87186; 87205; 93005; 96360; G0378; J0696; J1815; J2250; J2543; J2704